=== PATIENT | female | born 1990 | race Caucasian/White ===

== ENCOUNTER 2016-09-30 14:19 | Emergency (ER) | payer SELFPAY ==
[~2016-09-30 14:19] MED LIST: ACCUTANE40 MG PO; BACTRIM DS TABL1 TAB PO; CLARITIN10 MG PO; COLACE100 MG PO; COMPAZINE10 M PO; COMPAZINE10 MG PO; DOC-Q-LACE100 M2 PO; FLINTSTONES1 EAC2 PO; FLOMAX0.4 M1 PO; IBUPROFEN800 M1 PO; IBUPROFEN800 MG PO; IUD; METHERGINE0.2 MG PO; METOCLOPRAMIDE10 MG PO; MONISTAT; MONISTAT 3200 MG/SUP VG; NASAL DECONGEST30 ML; NO MEDICATIONS; NORCO 5-325 TA1 EACH PO; NORCO 5/325 TAB1 TAB PO; NORCO 5/3251 TAB PO; OMEPRAZOLE20 M4 PO; OXYCODONE/APAP PO; PERCOCET 5-3251 EACH PO; PHENERGAN12.5 M2 PR; PHENERGAN12.5 MG PO; PHENERGAN25 M1 PO; PRENATAL VITAMI; PRENATAL1 EACH PO; PYRIDIUM200 M1 PO; SENNA8.6 M3 PO; SEPTRA DS TABLE1 TAB PO; SLEEPING PILL; TYLENOL #31 TA1 PO; VITAMIN B-625 M1 PO; VITAMIN B650 M1 PO; ZOFRAN ODT4 MG PO; ZOFRAN4 M1 PO; ZOFRAN4 M2 PO; ZOFRAN4 MG PO; ZOLOFT100 MG; ZOLOFT100 MG PO; ZOLOFT50 MG PO
[2016-09-30 14:50] LABS: URINE APPEARANCE CLEAR; URINE BILIRUBIN NEGATIVE (NEG); URINE BLOOD NEGATIVE (NEG); URINE COLOR YELLOW; URINE GLUCOSE (UA) NEGATIVE (NEG); URINE KETONE SMALL (NEG); URINE LEUKOCYTE ESTERASE NEGATIVE (NEG); URINE NITRITE NEGATIVE (NEG); URINE PROTEIN MODERATE (NEG); URINE SPECIFIC GRAVITY 1.025 (1.003-1.030)
[2016-09-30 15:01] LABS: URINE BACTERIA 1+; URINE MUCUS 2+
[2016-09-30] MEDS ORDERED: MONESSA (15:22)
== END 2016-09-30 16:27 ==
LOC: EDMED 14:19
PROVIDERS: Emergency Medicine
DX: N89.8 Other specified noninflammatory disorders of vagina (principal); F17.210 Nicotine dependence, cigarettes, uncomplicated